=== PATIENT | male | born 1970 | race Caucasian/White ===

== ENCOUNTER 2020-08-23 23:29 | Emergency (ER) | payer OTHER ==
[~2020-08-23] VITALS: Ht 175.3 cm; Wt 90.7 kg
[~2020-08-23 23:29] MED LIST: BUPROPION XL150 MG; CIPRO250 M1 PO; LISINOPRIL-HCT1 EAC1; METOPROLOL SUCC25 M1; ZOLOFT100 MG
[2020-08-24 00:16] LABS: ABSOLUTE BASOPHILS 0.1 thou/uL (0.0-0.2); ABSOLUTE EOSINOPHILS 0.6 thou/uL (0.0-0.7); ABSOLUTE LYMPHOCYTES 2.3 thou/uL (0.8-5.3); ABSOLUTE MONOCYTES 0.8 thou/uL (0.0-1.2); ABSOLUTE NEUTROPHILS 8.6 thou/uL (1.6-8.1); EOSINOPHILS 4.6 %; HEMATOCRIT 41.4 % (42.0-52.0); HEMOGLOBIN 13.9 gm/dL (14.0-18.0); LYMPHOCYTES 18.3 %; MCH 30.9 pg (26.0-34.0); MCHC 33.6 g/dL (28.0-37.0); MCV 91.8 fL (80.0-100.0); MONOCYTES 6.4 %; MPV 9.2 fl. (7.2-11.1); NUCLEATED RBCS 0 /100WBC; PLATELET COUNT* 244 thou/uL (150-400); POLYS 69.7 %; RBC 4.51 mil/uL (4.50-6.00); RDW-CV 13.9 % (10.5-14.5); WBC 12.3 thou/uL (4.0-11.0)
[2020-08-24 00:24] LABS: CALCIUM 9.2 mg/dL (8.5-10.1); POTASSIUM 3.7 mmol/L (3.5-5.1)
[2020-08-24 00:28] LABS: ALBUMIN 3.5 g/dL (3.4-5.0); MAGNESIUM 1.7 mg/dL (1.8-2.4); TOTAL BILIRUBIN 0.4 mg/dL (<0.1-1.0); TOTAL PROTEIN 7.5 g/dL (6.4-8.2)
[2020-08-24 02:34] LABS: URINE BILIRUBIN NEGATIVE (Negative); URINE BLOOD NEGATIVE (Negative); URINE CLARITY CLEAR; URINE COLOR YELLOW; URINE GLUCOSE-RANDOM NEGATIVE (Negative); URINE KETONES NEGATIVE (Negative); URINE LEUKOCYTES-REFLEX NEGATIVE (Negative); URINE NITRITE-REFLEX NEGATIVE (Negative); URINE PROTEIN NEGATIVE (Negative); URINE UROBILINOGEN 0.2 E.U./dl (0.2-1.0)
[2020-08-24] MEDS ORDERED: NORCO5 PO (04:19)
[2020-08-24] MEDS ORDERED: ZOFRAN ODT4 MG PO (04:19)
[2020-08-24 04:30] VITALS: BP 122/66
--- NOTE | 2020-08-24 10:34 | EKG ---
[place] [address] ELECTROCARDIOGRAM REPORT Name: JEROD ANTHONY Room: [facility]#: [id number] Admission: 08/23/20 Attend Phys: Discharge: 08/24/20 Date of : 70 Date of Service: 08/23/20 2337 Report #: [id number] THIS REPORT FOR: //name// [facility] ED Test Date: 2020-08-23 Test Time: 23:37:04 Pat Name: JEROD ANTHONY Department: Room: Gender: Carpenter [employer]: [place] : 1970 Requested By: Ivette Calhoun Order Number: [id number] MD: Jaron Bond Measurements Intervals [place] Rate: 43 P: 12 WA: 183 QRS: -1 QRSD: 106 T: 36 QT: 461 QTc: 390 Interpretive Statements Sinus bradycardia Low voltage, precordial leads No previous ECG available for comparison Electronically Signed On 08-24-2020 10:34:35 CDT by Jaron Bond [email or web address] <ELECTRONICALLY SIGNED> By: Jaron Bond MD, [facility] 08/24/20 1034 2337 2337 Jaron Bond MD, [facility] /EPI
== END 2020-08-24 04:30 | disposition home or self-care (01) ==
LOC: M.ERS 23:29
PROVIDERS: Personal Emergency Response Attendant
DX: K80.50 Calculus of bile duct without cholangitis or cholecystitis without obstruction (principal); R11.2 Nausea with vomiting, unspecified; R10.13 Epigastric pain; R10.11 Right upper quadrant pain; I10 Essential (primary) hypertension; Z88.5 Allergy status to narcotic agent